=== PATIENT | male | born 1990 | race American Indian/Alaskan Native ===

== ENCOUNTER 2018-12-14 08:54 | Emergency (ER) | payer OTHER ==
[2018-12-14] MEDS ORDERED: BENTYL IM ONE (09:50)
[2018-12-14] MEDS ORDERED: ZOFRAN IM ONE (09:50)
--- NOTE | 2018-12-14 10:23 | Emergency Department Report ---
Vomiting/Diarrhea - HPI Chief Complaint: Nausea/Vomiting/Diarrhea Stated Complaint: NAUSEA/EXCESSIVE SWEATS/VOMIT Time Seen by Provider: 12/14/18 09:42 Duration: 2 Days Severity: moderate Nausea/Vomiting Severity: Mild Diarrhea Severity: None Pain Location: Epigastric Pain Severity: Mild Symptoms: Yes Recent Unusual Foods (patient ate some pork chops last night however he states he was feeling some mild nausea before he ate), No Fever, No Able to Tolerate Fluids, No Recent use of Antibiotics, No Family w/ Similar Symptoms, No Contacts w/ Similar Symptoms, No Rash, No Hematuria, No Recent URI Symptoms ED Review of Systems ROS: Stated complaint: NAUSEA/EXCESSIVE SWEATS/VOMIT Other details as noted in HPI Comment: All other systems reviewed and negative ED Past Medical Hx - Past Medical History Previous Medical History?: No - Surgical History Past Surgical History?: No - Social History Smoking Status: Never Smoker Substance Use Type: Marijuana - Medications Home Medications: Home Medications Medication Instructions Recorded Confirmed Last Taken Type Dicyclomine [Bentyl] 20 mg PO QID #12 tablet 12/14/18 Unknown Rx Famotidine [Pepcid] 40 mg PO QHS #10 tablet 12/14/18 Unknown Rx Ondansetron [Zofran Odt] 4 mg PO Q8HR PRN #10 tab.rapdis 12/14/18 Unknown Rx Vomiting Diarrhea Exam - Exam General: Vital signs noted. No distress. Alert and acting appropriately. HEENT: Yes Moist Mucous Membranes, No Pharyngeal Erythema, No Pharyngeal Exudates, No Rhinorrhea, No Conjuctival Injection, No Frontal Tenderness, No Maxillary Tenderness Neck: No Adenopathy, No Rigidity Lungs: Yes Clear Lung Sounds, Yes Good Air Exchange, No Wheezes, No Stridor, No Cough, No Nasal Flaring, No Retractions, No Use of Accessory Muscles Heart exam: Regular: Yes, Murmur: No, Tachycardia: No Abdomen: Tenderness: No, Peritoneal Signs: No, Distention: No, Hyperactive Bowel sounds: No Skin exam: Rash: No, Edema: No, Normal turgor: Yes Neurologic: Alert and oriented, no deficits. Musculoskeletal: Unremarkable. ED Course Vital Signs 12/14/18 09:06 Temperature 97.9 F Pulse Rate 87 Respiratory 20 Rate O2 Sat by Pulse 99 Oximetry ED Medical Decision Making - Medical Decision Making Patient's vital signs within normal limits and he is abdomen is soft and objectively nontender. Patient is stable for discharge to get meds for symptomatic relief has been told to advance his diet very slowly. [facility] we are saying of large number of cases of viral gastroenteritis and the patient likely has early case of this syndrome. Critical care attestation.: If time is entered above; I have spent that time in minutes in the direct care of this critically ill patient, excluding procedure time. ED Disposition Clinical Impression: Viral gastritis Disposition: DC- TO HOME OR SELFCARE Is pt being admited?: No Does the pt Need Aspirin: No Condition: Stable Instructions: Gastritis (ED) Referrals: BRENDAN TOWNSEND MD [Primary Care Provider] - 3-5 Days Time of Disposition: 10:22
== END 2018-12-14 10:30 | disposition home or self-care (01) ==
LOC: ED 08:54
DX: A08.4 Viral intestinal infection, unspecified (principal); F12.10 Cannabis abuse, uncomplicated
CPT/HCPCS: 96372; 99282; J0500; J2405